=== PATIENT | female | born 1990 | race Two or more races ===

== ENCOUNTER 2016-10-16 08:21 | Emergency (ER) | payer MEDICAID ==
[~2016-10-16] VITALS: Ht 157.5 cm; Wt 81.6 kg
[~2016-10-16 08:21] MED LIST: ALBU0.5N2; ALBUAER3 IN; AZIT250T PO; CLON0.5T3
[2016-10-16 09:02] VITALS: BP 107/79
[2016-10-16] MEDS ORDERED: LORazepam 2MG/ML-1ML VIAL IM ONE (09:30)
== END 2016-10-16 10:01 | disposition home or self-care (01) ==
LOC: ER 08:21
DX: F41.9 Anxiety disorder, unspecified (principal); F32.9 Major depressive disorder, single episode, unspecified; J45.909 Unspecified asthma, uncomplicated; F17.210 Nicotine dependence, cigarettes, uncomplicated; Z79.899 Other long term (current) drug therapy
CPT/HCPCS: 93005; 96372; 99284; J2060

== ENCOUNTER 2016-11-25 19:05 | Emergency (ER) | payer MEDICAID ==
[~2016-11-25] VITALS: Ht 157.5 cm; Wt 74.8 kg
[2016-11-25 19:13] VITALS: BP 120/71
[2016-11-25 20:18] LABS: Basophils # (auto) 0 uL; Basophils % (auto) 0.2 % (0.0-2.0); Eosinophils # (auto) 0.2 uL; Eosinophils % (auto) 2.6 % (0.0-7.0); Hematocrit 45.8 % (36.0-46.0); Hemoglobin 15.6 g/dL (12.2-16.2); Lymphocytes # (auto) 2.7 uL; Lymphocytes % (auto) 31.3 % (10.0-50.0); Mean Corpuscular Hemoglobin 29.1 pg (28.0-32.0); Mean Corpuscular Volume 85.4 fL (80.0-100.0); Mean Platelet Volume 9.3 fL (7.4-10.4); Monocytes # (auto) 0.5 uL; Monocytes % (auto) 5.2 % (0.0-12.0); Neutrophils # (auto) 5.3 uL; Neutrophils % (auto) 60.7 % (37.0-80.0); Platelet Count (auto) 229 10^3/uL (140-450); Red Cell Distribution Width 13.2 % (11.6-16.0); White Blood Cell 8.8 10^3/uL (4.4-10.8)
[2016-11-25 20:44] LABS: Albumin 4.2 g/dL (3.4-5.0); Alkaline Phosphatase 85 U/L (45-117); Anion Gap 10 (5-15); Aspartate Aminotransferase 15 U/L (15-37); BUN/Creatinine Ratio 28.1; Bilirubin, Total 0.4 mg/dL (0.2-1.0); Blood Urea Nitrogen 16 mg/dL (7-18); Carbon Dioxide 26 mmol/L (21-32); Chloride 107 mmol/L (98-107); GFR African American 162 mL/min; GFR Non-African American 134 mL/min; Glucose 93 mg/dL (74-106); Potassium 3.4 mmol/L (3.5-5.1); Sodium 143 mmol/L (136-145); Total Protein 7.8 g/dL (6.4-8.2)
== END 2016-11-25 21:30 | disposition home or self-care (01) ==
LOC: EDUNIT# 19:05 → EDBD 19:05 → ER 19:08
DX: R07.9 Chest pain, unspecified (principal); J45.909 Unspecified asthma, uncomplicated; F17.210 Nicotine dependence, cigarettes, uncomplicated; Z88.1 Allergy status to other antibiotic agents
CPT/HCPCS: 36415; 71010; 80053; 84484; 84702; 85025; 93005

== ENCOUNTER 2016-12-12 07:41 | Emergency (ER) | payer MEDICAID ==
[~2016-12-12] VITALS: Ht 162.6 cm; Wt 82.6 kg
[2016-12-12 07:45] VITALS: BP 119/72
== END 2016-12-12 08:32 | disposition home or self-care (01) ==
LOC: ER 07:41
DX: F41.9 Anxiety disorder, unspecified (principal); J45.909 Unspecified asthma, uncomplicated; F32.9 Major depressive disorder, single episode, unspecified; Z76.0 Encounter for issue of repeat prescription; F17.210 Nicotine dependence, cigarettes, uncomplicated

== ENCOUNTER 2017-01-25 06:04 | Emergency (ER) | payer MEDICAID ==
[~2017-01-25] VITALS: Ht 162.6 cm; Wt 83.9 kg
[2017-01-25 06:19] VITALS: BP 144/79
== END 2017-01-25 07:41 | disposition home or self-care (01) ==
LOC: ER 06:04
DX: F41.9 Anxiety disorder, unspecified (principal); J45.909 Unspecified asthma, uncomplicated; F32.9 Major depressive disorder, single episode, unspecified; F17.210 Nicotine dependence, cigarettes, uncomplicated; Z76.0 Encounter for issue of repeat prescription

== ENCOUNTER 2017-03-04 10:38 | Emergency (ER) | payer MEDICAID ==
[~2017-03-04] VITALS: Ht 157.5 cm; Wt 72.6 kg
[2017-03-04 11:02] VITALS: BP 130/92
== END 2017-03-04 11:40 | disposition home or self-care (01) ==
LOC: ER 10:38
DX: J45.909 Unspecified asthma, uncomplicated (principal); Z76.0 Encounter for issue of repeat prescription; F17.210 Nicotine dependence, cigarettes, uncomplicated

== ENCOUNTER → 2017-09-09 | Emergency (ER) | payer MEDICAID | END | disposition left against medical advice (07) | LOC: ER 12:35 | DX: R10.9 Unspecified abdominal pain (principal); Z53.21 Procedure and treatment not carried out due to patient leaving prior to being seen by health care provider ==

== ENCOUNTER 2018-04-26 09:31 | Emergency (ER) | payer MEDICAID ==
[~2018-04-26] VITALS: Ht 162.6 cm; Wt 83.5 kg
[~2018-04-26 09:31] MED LIST changes: +CLON0.5T10; -CLON0.5T3
[2018-04-26 09:45] VITALS: BP 119/97
== END 2018-04-26 11:32 | disposition home or self-care (01) ==
LOC: ER 09:31
DX: F41.9 Anxiety disorder, unspecified (principal); J45.909 Unspecified asthma, uncomplicated; F17.210 Nicotine dependence, cigarettes, uncomplicated; Z76.0 Encounter for issue of repeat prescription

== ENCOUNTER 2018-08-11 11:37 | Emergency (ER) | payer MEDICAID ==
[~2018-08-11] VITALS: Ht 162.6 cm; Wt 68.0 kg
[2018-08-11 12:00] VITALS: BP 120/72
== END 2018-08-11 17:14 | disposition left against medical advice (07) ==
LOC: ER 11:52
DX: J02.9 Acute pharyngitis, unspecified (principal); Z53.21 Procedure and treatment not carried out due to patient leaving prior to being seen by health care provider

== ENCOUNTER 2018-10-23 22:41 | Emergency (ER) | payer MEDICAID ==
[~2018-10-23] VITALS: Ht 160 cm; Wt 80.3 kg
[2018-10-23 23:00] VITALS: BP 106/51
[2018-10-23 23:57] LABS: Basophils # (auto) 0 uL; Basophils % (auto) 0.3 % (0.0-2.0); Eosinophils # (auto) 0.7 uL; Eosinophils % (auto) 8.6 % (0.0-7.0); Hematocrit 35.6 % (36.0-46.0); Hemoglobin 11.5 g/dL (12.2-16.2); Lymphocytes # (auto) 2.6 uL; Lymphocytes % (auto) 31.4 % (10.0-50.0); Mean Corpuscular Hemoglobin 25.5 pg (28.0-32.0); Mean Corpuscular Hgb Conc. 32.2 g/dL (32.0-36.0); Mean Corpuscular Volume 79.3 fL (80.0-100.0); Monocytes # (auto) 0.6 uL; Monocytes % (auto) 7.7 % (0.0-12.0); Neutrophils # (auto) 4.4 uL; Nucleated Red Blood Cells % 0.1 %; Platelet Count (auto) 293 10^3/uL (140-450); Red Blood Cells 4.49 10^6/uL (4.0-5.20); Red Cell Distribution Width 15.9 % (11.8-14.3); White Blood Cell 8.4 10^3/uL (4.4-10.8)
[2018-10-24 00:18] LABS: Albumin 3.2 g/dL (3.4-5.0); Calcium 8.4 mg/dL (8.5-10.1); Potassium 3.9 mmol/L (3.5-5.1)
[2018-10-24 00:21] LABS: Bilirubin, Total 0.1 mg/dL (0.2-1.0); Total Protein 6.6 g/dL (6.4-8.2)
== END 2018-10-24 04:47 | disposition left against medical advice (07) ==
LOC: ER 22:47
DX: J03.90 Acute tonsillitis, unspecified (principal); Z53.21 Procedure and treatment not carried out due to patient leaving prior to being seen by health care provider
CPT/HCPCS: 36415; 80053; 85025

== ENCOUNTER 2018-11-01 00:10 | Emergency (ER) | payer MEDICAID ==
[~2018-11-01] VITALS: Ht 160 cm; Wt 74.8 kg
[2018-11-01] MEDS ORDERED: methylPREDNISolone SOD SUCC 125 MG/2 ML VL IV ONE (00:15)
[2018-11-01] MEDS ORDERED: diphenhdrAMINE HCL 50 MG/1 ML VL IV ONE (00:15)
[2018-11-01 02:20] VITALS: BP 116/63
== END 2018-11-01 03:21 | disposition home or self-care (01) ==
LOC: ER 00:10
DX: T78.40XA Allergy, unspecified, initial encounter (principal); R22.0 Localized swelling, mass and lump, head; F17.210 Nicotine dependence, cigarettes, uncomplicated; J45.909 Unspecified asthma, uncomplicated; Z79.2 Long term (current) use of antibiotics
CPT/HCPCS: 96374; 96375; 99283; J1200; J2930

== ENCOUNTER 2019-02-03 20:31 | Emergency (ER) | payer MEDICAID ==
[~2019-02-03] VITALS: Ht 160 cm; Wt 79.4 kg
[2019-02-03] MEDS ORDERED: methylPREDNISolone SOD SUCC 125 MG/2 ML VL IV ONE (21:00)
[2019-02-03] MEDS ORDERED: SODIUM CHLORIDE 0.9% 1,000 ML IV ONE (21:00)
[2019-02-03] MEDS ORDERED: ALPRAZolam 0.5 MG TAB PO ONE (21:15)
[2019-02-03] MEDS ORDERED: IPRATROPIUM BROM 0.5 MG/2.5ML INH SOL NEB ONE (22:30)
[2019-02-03] MEDS ORDERED: ALBUTEROL SULF 2.5 MG/0.5ML(0.5%) NEB SOLN NEB ONE (22:30)
[2019-02-03 22:45] VITALS: BP 108/50
== END 2019-02-03 23:00 | disposition home or self-care (01) ==
LOC: ER 20:33
DX: J20.9 Acute bronchitis, unspecified (principal); F41.9 Anxiety disorder, unspecified; J45.909 Unspecified asthma, uncomplicated; F17.210 Nicotine dependence, cigarettes, uncomplicated; F32.9 Major depressive disorder, single episode, unspecified; Z91.040 Latex allergy status
CPT/HCPCS: 94640; 96374; 99283; J2930; J7030; J7611; J7644

== ENCOUNTER 2019-12-24 10:58 | Emergency (ER) | payer MEDICAID ==
[~2019-12-24] VITALS: Ht 162.6 cm; Wt 89.8 kg
[2019-12-24 11:04] VITALS: BP 119/68
[2019-12-24] MEDS ORDERED: methylPREDNISolone SOD SUCC 125 MG/2 ML VL IM ONE (11:45)
== END 2019-12-24 12:02 | disposition home or self-care (01) ==
LOC: ER 10:58
DX: T78.40XA Allergy, unspecified, initial encounter (principal); J45.909 Unspecified asthma, uncomplicated; X58.XXXA Exposure to other specified factors, initial encounter
CPT/HCPCS: 96372; 99283; J2930

== ENCOUNTER 2020-03-17 12:08 | Emergency (ER) | payer MEDICAID ==
[~2020-03-17] VITALS: Ht 157.5 cm; Wt 88.5 kg
[2020-03-17 12:30] VITALS: BP 101/65
== END 2020-03-17 12:56 | disposition left against medical advice (07) ==
LOC: ER 12:08
DX: H57.89 Other specified disorders of eye and adnexa (principal); Z53.21 Procedure and treatment not carried out due to patient leaving prior to being seen by health care provider

== ENCOUNTER 2020-03-19 08:47 | Emergency (ER) | payer MEDICAID ==
[~2020-03-19] VITALS: Ht 160 cm; Wt 86.2 kg
[2020-03-19 09:05] VITALS: BP 121/64
[2020-03-19] MEDS ORDERED: methylPREDNISolone SOD SUCC 125 MG/2 ML VL IM ONE (09:45)
== END 2020-03-19 09:54 | disposition home or self-care (01) ==
LOC: ER 08:47
DX: T78.40XA Allergy, unspecified, initial encounter (principal); J45.909 Unspecified asthma, uncomplicated; Z76.0 Encounter for issue of repeat prescription; Z91.010 Allergy to peanuts; Z91.040 Latex allergy status; Z91.018 Allergy to other foods; X58.XXXA Exposure to other specified factors, initial encounter
CPT/HCPCS: 96372; 99283; J2930

== ENCOUNTER → 2020-04-04 | Emergency (ER) | payer MEDICAID ==
[~2020-04-04] VITALS: Ht 157.5 cm; Wt 91.6 kg
[~2020-04-04] MED LIST changes: +LORazepam 2MG/ML-1ML VIAL IV ONE; +SODIUM CHLORIDE 0.9% 1,000 ML IV ONE
[2020-04-04 20:50] LABS: Basophils # (auto) 0 10 ^3/uL (0-0.2); Eosinophils # (auto) 0.2 10 ^3/uL (0-0.8); Monocytes # (auto) 0.5 10 ^3/uL (0-1.3); Neutrophils # (auto) 7.2 10 ^3/uL (1.6-8.6)
[2020-04-04 20:51] LABS: Basophils % (auto) 0.3 % (0.0-2.0); Eosinophils % (auto) 1.5 % (0.0-7.0); Hematocrit 38.8 % (36.0-46.0); Hemoglobin 12.2 g/dL (12.2-16.2); Lymphocytes # (auto) 2.2 10 ^3/uL (0.4-5.4); Lymphocytes % (auto) 21.7 % (10.0-50.0); Mean Corpuscular Hemoglobin 23.3 pg (28.0-32.0); Mean Corpuscular Hgb Conc. 31.5 g/dL (32.0-36.0); Mean Corpuscular Volume 73.9 fL (80.0-100.0); Neutrophils % (auto) 71.5 % (37.0-80.0); Platelet Count (auto) 458 10^3/uL (140-450); Red Blood Cells 5.25 10^6/uL (4.0-5.20); White Blood Cell 10.1 10^3/uL (4.4-10.8)
[2020-04-04 20:56] LABS: Red Cell Distribution Width 21.2 % (11.8-14.3)
[2020-04-04 21:03] LABS: Albumin 4.1 g/dL (3.4-5.0); Anion Gap 7 (5-15); Blood Urea Nitrogen 21 mg/dL (7-18); Calcium 9.6 mg/dL (8.5-10.1); Carbon Dioxide 24 mmol/L (21-32); Chloride 105 mmol/L (98-107); Glucose 82 mg/dL (74-106); Magnesium 2.6 mg/dL (1.6-2.6); Potassium 3.6 mmol/L (3.5-5.1); Sodium 136 mmol/L (136-145)
[2020-04-04 21:06] LABS: Alanine Aminotransferase 18 U/L (13-56); Alkaline Phosphatase 169 U/L (45-117); Aspartate Aminotransferase 13 U/L (15-37); BUN/Creatinine Ratio 23.9; Bilirubin, Total 0.5 mg/dL (0.2-1.0); GFR African American 96 mL/min; GFR Non-African American 80 mL/min; Total Protein 8.9 g/dL (6.4-8.2)
[2020-04-04 22:10] VITALS: BP 113/80
== END | disposition home or self-care (01) ==
LOC: EDUNIT# 18:36 → EDBD 18:42 → ER 18:46
DX: F41.9 Anxiety disorder, unspecified (principal); F15.10 Other stimulant abuse, uncomplicated; R07.89 Other chest pain; Z79.899 Other long term (current) drug therapy
CPT/HCPCS: 36415; 71045; 80053; 83735; 84484; 85025; 93005; 96361; 96374; 99285; J2060; J7030

== ENCOUNTER 2020-08-11 21:53 | Emergency (ER) | payer MEDICAID ==
[~2020-08-11] VITALS: Ht 160 cm; Wt 92.5 kg
[~2020-08-11 21:53] MED LIST changes: -LORazepam 2MG/ML-1ML VIAL IV ONE; -SODIUM CHLORIDE 0.9% 1,000 ML IV ONE
[2020-08-11 22:08] VITALS: BP 122/53
[2020-08-11] MEDS ORDERED: hydrOXYzine 25 MG TAB or CAP PO ONE (23:45)
[2020-08-12] MEDS ORDERED: hydrOXYzine 25 MG TAB or CAP PO ONE
[2020-08-12 00:02] LABS: Alcohol, Urine < 3.0 mg/dL (0-10); Amphetamine Screen, Urine NEGATIVE (NEGATIVE); Barbiturate Scree,Urine NEGATIVE (NEGATIVE); Benzodiazephine Screen, Urine POSITIVE (NEGATIVE); Cannabinoid Screen, Urine POSITIVE (NEGATIVE); Cocaine Screen, Urine NEGATIVE (NEGATIVE); Opiate Scree,Urine POSITIVE (NEGATIVE); Phencyclidine Screen, Urine NEGATIVE (NEGATIVE)
== END 2020-08-12 01:22 | disposition home or self-care (01) ==
LOC: ER 21:56
DX: F41.1 Generalized anxiety disorder (principal); E66.9 Obesity, unspecified; Z68.36 Body mass index [BMI] 36.0-36.9, adult; Z32.01 Encounter for pregnancy test, result positive
CPT/HCPCS: 80307; 81025

== ENCOUNTER 2020-09-16 08:51 | Emergency (ER) | payer MEDICAID ==
[~2020-09-16] VITALS: Ht 157.5 cm; Wt 88.5 kg
[2020-09-16 09:05] VITALS: BP 125/80
[2020-09-16] MEDS ORDERED: IPRATROPIUM BROM 0.5 MG/2.5ML INH SOL NEB ONE (09:15)
[2020-09-16] MEDS ORDERED: methylPREDNISolone SOD SUCC 125 MG/2 ML VL IM ONE (09:15)
[2020-09-16] MEDS ORDERED: ALBUTEROL SULF 2.5 MG/0.5ML(0.5%) NEB SOLN NEB ONE (09:15)
== END 2020-09-16 10:33 | disposition home or self-care (01) ==
LOC: ER 08:51
DX: J45.901 Unspecified asthma with (acute) exacerbation (principal); F12.10 Cannabis abuse, uncomplicated; F15.10 Other stimulant abuse, uncomplicated
CPT/HCPCS: 94640; 96372; 99283; J2930; J7644

== ENCOUNTER 2020-10-11 16:08 | Emergency (ER) | payer MEDICAID ==
[~2020-10-11] VITALS: Ht 162.6 cm; Wt 88.5 kg
[2020-10-11] MEDS ORDERED: methylPREDNISolone SOD SUCC 125 MG/2 ML VL IV ONE (16:30)
[2020-10-11] MEDS ORDERED: IPRATROPIUM BROM 0.5 MG/2.5ML INH SOL NEB ONE (16:30)
[2020-10-11] MEDS ORDERED: ALBUTEROL SULF 2.5 MG/0.5ML(0.5%) NEB SOLN NEB ONE (16:30)
[2020-10-11 17:08] LABS: Basophils # (auto) 0 10 ^3/uL (0-0.2); Basophils % (auto) 0.3 % (0.0-2.0); Eosinophils # (auto) 0.5 10 ^3/uL (0-0.8); Lymphocytes # (auto) 1.9 10 ^3/uL (0.4-5.4); Nucleated Red Blood Cells % 0.1 %; White Blood Cell 10.6 10^3/uL (4.4-10.8)
[2020-10-11 17:11] LABS: Hematocrit 40.1 % (36.0-46.0); Hemoglobin 13.4 g/dL (12.2-16.2); Lymphocytes % (auto) 18.3 % (10.0-50.0); Mean Corpuscular Hgb Conc. 33.5 g/dL (32.0-36.0); Mean Corpuscular Volume 77.7 fL (80.0-100.0); Monocytes # (auto) 0.6 10 ^3/uL (0-1.3); Monocytes % (auto) 5.2 % (0.0-12.0); Neutrophils # (auto) 7.6 10 ^3/uL (1.6-8.6); Neutrophils % (auto) 71.2 % (37.0-80.0); Platelet Count (auto) 342 10^3/uL (140-450); Red Blood Cells 5.16 10^6/uL (4.0-5.20); Red Cell Distribution Width 17.4 % (11.8-14.3)
[2020-10-11 17:22] LABS: Albumin 4.2 g/dL (3.4-5.0); Calcium 8.8 mg/dL (8.5-10.1); Potassium 3.1 mmol/L (3.5-5.1)
[2020-10-11 17:24] LABS: BUN/Creatinine Ratio 25.3
[2020-10-11 17:27] LABS: Bilirubin, Total 0.5 mg/dL (0.2-1.0); Total Protein 7.7 g/dL (6.4-8.2)
[2020-10-11] MEDS ORDERED: methylPREDNISolone SOD SUCC 125 MG/2 ML VL IM ONE (17:30)
[2020-10-11] MEDS ORDERED: POTASSIUM EFFERVESENT TAB 25 MEQ PO ONE (17:45)
[2020-10-11 18:05] VITALS: BP 108/68
== END 2020-10-11 18:06 | disposition home or self-care (01) ==
LOC: ER 16:08
DX: J45.909 Unspecified asthma, uncomplicated (principal); E87.6 Hypokalemia
CPT/HCPCS: 36415; 71045; 80053; 85025; 94640; 96372; 99284; J2930; J7644

== ENCOUNTER 2021-01-19 14:50 | Emergency (ER) | payer MEDICAID ==
[~2021-01-19] VITALS: Ht 160 cm; Wt 70.3 kg
[~2021-01-19 14:50] MED LIST changes: +LEVO500T31 PO
[2021-01-19 14:57] VITALS: BP 116/80
[2021-01-19] MEDS ORDERED: methylPREDNISolone SOD SUCC 125 MG/2 ML VL IV ONE (15:45)
[2021-01-19] MEDS ORDERED: SODIUM CHLORIDE 0.9% 1,000 ML IV ONE (16:15)
== END 2021-01-19 16:41 | disposition left against medical advice (07) ==
LOC: ER 14:50
DX: T40.411A Poisoning by fentanyl or fentanyl analogs, accidental (unintentional), initial encounter (principal); T40.5X1A Poisoning by cocaine, accidental (unintentional), initial encounter; T42.4X1A Poisoning by benzodiazepines, accidental (unintentional), initial encounter; Z79.2 Long term (current) use of antibiotics; Z79.899 Other long term (current) drug therapy; Z91.040 Latex allergy status; Z91.010 Allergy to peanuts; Z91.018 Allergy to other foods; Y92.89 Other specified places as the place of occurrence of the external cause

== ENCOUNTER 2021-02-11 10:11 | Emergency (ER) | payer MEDICAID ==
[~2021-02-11] VITALS: Ht 160 cm; Wt 72.6 kg
[2021-02-11 11:49] VITALS: BP 122/83
== END 2021-02-11 12:42 | disposition home or self-care (01) ==
LOC: ER 10:11
DX: H11.32 Conjunctival hemorrhage, left eye (principal); Z91.040 Latex allergy status; Z79.899 Other long term (current) drug therapy; Z98.890 Other specified postprocedural states

== ENCOUNTER 2021-03-31 16:25 | Emergency (ER) | payer MEDICAID ==
[~2021-03-31] VITALS: Ht 157.5 cm; Wt 90.7 kg
[2021-03-31 16:35] VITALS: BP 110/80
== END 2021-03-31 20:20 | disposition left against medical advice (07) ==
LOC: ER 16:25
DX: T15.91XA Foreign body on external eye, part unspecified, right eye, initial encounter (principal); Z53.21 Procedure and treatment not carried out due to patient leaving prior to being seen by health care provider; X58.XXXA Exposure to other specified factors, initial encounter; Y93.89 Activity, other specified; Y92.89 Other specified places as the place of occurrence of the external cause; Y99.8 Other external cause status

== ENCOUNTER 2025-07-07 14:31 | Emergency (ER) | payer MEDICAID ==
[~2025-07-07] VITALS: Ht 160 cm; Wt 59.0 kg
[~2025-07-07 14:31] MED LIST changes: +AZIT-74 PO; -AZIT250T PO; -CLON0.5T10; +CLON0.5T4
--- NOTE | 2025-07-07 14:43 | ECG ---
[facility] Test Date: 2025-07-07 Test Time: 14:35:03 Pat Name: UBALDO MCMAHAN Department: [facility] ED Patient ID: [id number] Room: Gender: F Associate Application Developer: shantel : 1990 Requested By: CARLEE HINES Order Number: [id number] Reading MD: Jareth Ruiz Measurements Intervals [place] Rate: 104 P: 63 KS: 189 QRS: 9 QRSD: 109 T: 28 QT: 367 QTc: 483 Interpretive Statements Sinus tachycardia Abnormal R-wave progression, early transition Electronically Signed On 07-09-2025 10:32:15 PST by Jareth Ruiz Please click the below link to view image of tracing.
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
[2025-07-07 15:55] VITALS: TEMP 97.6
[2025-07-07] MEDS: LORazepam 0.5 MG TAB PO ONE (18:42)
== END 2025-07-07 18:47 | disposition home or self-care (01) ==
LOC: EDBD 14:31 → ER 14:31
DX: F41.9 Anxiety disorder, unspecified (principal); J45.909 Unspecified asthma, uncomplicated; Z91.040 Latex allergy status; Z91.010 Allergy to peanuts
CPT/HCPCS: 36415; 84484; 93005